=== PATIENT | female | born 1955 | race Caucasian/White ===

== ENCOUNTER 2024-02-28 12:25 | Emergency (ER) | payer MEDICARE, OTHER, SELFPAY ==
[2024-02-28 12:28] VITALS: BP 139/67; PULSE 50; RESP 16; TEMP 36.4; O2SAT 99; BMI 29.2
--- NOTE | 2024-02-28 12:42 | ED_ITS ---
HPI - Headache <Abdoulaye Donahue PA-C - Last Filed: 02/28/24 13:58> General Chief Complaint: Headache Stated Complaint: Fall 1 month ago, vision issues and body pain Time Seen by Provider: 02/28/24 12:42 Mode of arrival: Ambulatory History of Present Illness HPI Narrative: This is a 68-year-old female presents to the emergency department due to a mechanical ground level fall 3 weeks ago where she hit her head. She had not lose conscious. She states that 2 months ago she began noticing vision changes described as ?vertical fuzzy lines? that would last 1-2 minutes. Since the accident happened 3 weeks ago she was had a few episodes of these vision changes that lasted for about 30 minutes which caused her to become concerned. She denies any significant head pain, nausea, vomiting, slurred speech, dizziness, or any other concerning signs or symptoms. History of migraines since she was 2 years old but has not had these vision changes related to these migraines. Related Data Home Medications Medication Instructions Recorded Confirmed atorvastatin 20 mg tablet (Lipitor) ##0 02/05/18 dihydroergotamine 1 mg/mL ##0 02/05/18 injection solution (D.H.E.45) levothyroxine 75 mcg tablet ##0 02/05/18 (Synthroid) propranolol 80 mg capsule,24 80 mg PO QDAY ##0 02/05/18 hr,extended release venlafaxine 150 mg 150 mg PO QDAY ##0 02/05/18 capsule,extended release 24 hr (Effexor XR) clobetasol 0.05 % topical cream 1 applictn topical Q OTHER DAY 10/21/19 10/21/19 liothyronine 5 mcg tablet 5 mcg PO DAILY 10/21/19 10/21/19 Previous Rx's Medication Instructions Recorded sumatriptan succinate 6 mg/0.5 mL 6 mg (0.5 mL) SUBCUT .COMPLEX #6 05/09/18 subcutaneous cartridge (refill) units zonisamide 100 mg capsule 400 mg (4 x 100 mg) PO DAILY #120 05/09/18 caps erenumab-aooe 70 mg/mL 140 mg (2 mL) SUBCUT QMONTH #2 mL 09/16/18 subcutaneous auto-injector (Aimovig Autoinjector 140 mg/2 Pack () erenumab-aooe 140 mg/mL 140 mg SUBCUT QMONTH #1 mL 05/01/19 subcutaneous auto-injector (Aimovig Autoinjector) erenumab-aooe 140 mg/mL 140 mg SUBCUT QMONTH #1 mL 10/21/19 subcutaneous auto-injector (Aimovig Autoinjector) zonisamide 50 mg capsule 50 mg PO DAILY #90 caps 10/21/19 Allergies Allergy/AdvReac Type Severity Reaction Status Date / Time codeine [CODEINE] Allergy Unknown Verified 02/28/24 13:17 Review of Systems <Abdoulaye Donahue PA-C - Last Filed: 02/28/24 13:58> Review of Systems Narrative: GENERAL: Denies chills, fatigue, malaise, fever, sweats. HEENT: Reports vision changes Denies sinus pain, ear pain, sore throat, difficulty swallowing, dizziness. RESPIRATORY: Denies dyspnea, cough, wheezing, hemoptysis, sputum. CARDIOVASCULAR: Denies chest pain, palpitations, orthopnea, edema, GASTROINTESTINAL: Denies nausea, vomiting, abdominal pain, diarrhea, constipation, melena. : Denies dysuria, frequency, incontinence, hematuria, urinary retention. MUSCULOSKELETAL: denies weakness, joint pain, or bony pain SKIN: Denies rash, skin lesions, or other NEUROLOGIC: Denies weakness, headache, numbness, change in speech, confusion, seizures, incoordination. PSYCHIATRIC: No concerning psychosocial issues. 12 point review of systems is negative except for those stated above Patient History <Abdoulaye Donahue PA-C - Last Filed: 02/28/24 13:58> Social History Smoking Status: Never smoker Smoking Status: Never smoker Substance Use Type: does not use Exam <Abdoulaye Donahue PA-C - Last Filed: 02/28/24 13:58> Narrative Exam Narrative: GENERAL: Well-developed patient, in mild distress. HEAD: Atraumatic. Normocephalic. EYES: Pupils equal round and reactive. Extraocular motions intact. No scleral icterus. No injection or drainage. ENT: Nose without bleeding, purulent drainage. Throat without erythema, tonsillar hypertrophy or exudate. Airway patent. NECK: Trachea midline. Non tender EXTREMITIES: No edema or joint tenderness. NEURO: AOx3. Cranial nerves 2-12 intact SKIN: No rash or erythema of visible areas Initial Vital Signs Initial Vital Signs: Vital Signs Temperature 97.6 F 02/28/24 12:28 Pulse Rate 50 L 02/28/24 12:28 Respiratory Rate 16 02/28/24 12:28 Blood Pressure 139/67 02/28/24 12:28 Pulse Oximetry 99 02/28/24 12:28 Oxygen Delivery Method Room Air 02/28/24 12:28 <Stefan Zuñiga DO - Last Filed: 02/28/24 14:04> Initial Vital Signs Initial Vital Signs: Vital Signs Temperature 97.6 F 02/28/24 12:28 Pulse Rate 50 L 02/28/24 12:28 Respiratory Rate 16 02/28/24 12:28 Blood Pressure 139/67 02/28/24 12:28 Pulse Oximetry 99 02/28/24 12:28 Oxygen Delivery Method Room Air 02/28/24 12:28 Course <Abdoulaye Donahue PA-C - Last Filed: 02/28/24 13:58> Orders Ordered: ED Orders 02/28/24 12:49 CT head/brain wo con Stat Vital Signs Vital signs: Vital Signs - 8 hr 02/28/24 12:28 Temperature 97.6 F Pulse Rate 50 L Respiratory Rate 16 Blood Pressure 139/67 Pulse Oximetry 99 Oxygen Delivery Method Room Air <DO Noel Miller Last Filed: 02/28/24 14:04> Orders Ordered: ED Orders 02/28/24 12:49 CT head/brain wo con Stat Vital Signs Vital signs: Vital Signs - 8 hr 02/28/24 12:28 Temperature 97.6 F Pulse Rate 50 L Respiratory Rate 16 Blood Pressure 139/67 Pulse Oximetry 99 Oxygen Delivery Method Room Air MDM - Headache <Abdoulaye Donahue PA-C - Last Filed: 02/28/24 13:58> Imaging Data CT scan - head: Radiologist's Impression: [address] [address] [address] Scan Report Signed Patient: Josie Pena MR#: [id number] : 1955 Acct:[id number] Age/Sex: 68 / F Date of Service: 02/28/24 Loc: ED Accession Number: [id number] Procedure: CT head/brain wo con Ordering Provider: Abdoulaye Donahue P.A-C PROCEDURE: CT HEAD/BRAIN WO CON INDICATIONS: Head injury 3 weeks ago, new vision changes TECHNIQUE: Noncontrast 4.5 mm thick angled axial sections acquired from the foramen magnum to the vertex, with coronal and sagittal reformats. For radiation dose reduction, the following was used: automated exposure control, adjustment of mA and/or kV according to patient size. COMPARISON: None. FINDINGS: Image quality: Diagnostic. CSF spaces: Basal cisterns are patent. No extra-axial fluid collections. Ventricles are normal in size and shape. Brain: No midline shift. No intracranial masses or hemorrhage. German-white matter interface is normal. Skull and face: Calvarium and visualized facial bones are intact, without suspicious lesions. Sinuses: Visualized sinuses and mastoids are clear. IMPRESSION: No acute intracranial pathology. Dictated by: Ezequiel Maguire M.D. on 02/28/2024 at 13:34 Approved by: Ezequiel Maguire M.D. on 02/28/2024 at 13:34 [facility] Narrative Medical decision making narrative: ED course: This is a 68-year-old female presents to the emergency department due to worsening vision changes after falling and hitting her head about a month ago. No other concerning neuro symptoms and physical exam very reassuring. CT head without contrast was unremarkable. May have mild concussion symptoms and recommended patient follow up with the Ophthalmology as well to further investigate the vision changes. CC: Vision changes Complicating co-morbidities: History of migraines Data collected from: Previous notes Medical records reviewed: Patient was not been seen in the end this emergency department in the past. Based on her pain management note from 5 years ago she had a history of chronic migraines. Differential considered, but not limited to: Concussion, migraine, ischemic stroke, subarachnoid hemorrhage, TBI Exam documented above, pertinent findings include: Cranial nerves 2-12 intact, reassuring neuro exam Lab Test results independently reviewed as above. Pertinent findings: None obtained Imaging studies independently reviewed: CT head unremarkable Scores Used: None MIPS Elements: None Consultations: None Treatments: None Re-evaluations: None Discussion: Discussed plan with the patient was comfortable with the plan Diagnosis: Concussion Disposition: see below, along with detailed discharge instructions that have been reviewed with patient as well as indications for ED re-evaluation and additional outpatient follow up Discharge Plan Departure Patient Disposition: Home Clinical Impression: Changes in vision Activity Restrictions/Additional Instructions: Thank you for coming to the [facility] Emergency Department today. As we discussed the CT head showed no evidence of any kind of intracranial bleed or other brain abnormality. You may have a mild concussion which maybe causing he was vision changes to worsen. I recommend he follow up with your eye doctor as well as your primary care provider for further workup and investigation. Please return to the emergency department if you develop any source speech, facial drooping, unilateral weakness, or any other concerning signs or symptoms. I hope you feel better soon. Please follow up with your primary care provider within a week if your symptoms continue. If you do not have a primary care provider please contact the [facility] Resource line at [phone]. They will ask some questions about your medical history and help you get set up with a provider in the community. Prescriptions: No Action atorvastatin [Lipitor] 20 MG tablet Qty: 0 levothyroxine [Synthroid] 75 MCG tablet Qty: 0 venlafaxine [Effexor XR] 150 MG capsule,extended release 24hr 150 mg PO QDAY Qty: 0 propranolol 80 MG capsule,extended release 24 hr 80 mg PO QDAY Qty: 0 dihydroergotamine [D.H.E.45] 1 MG/1 ML solution Qty: 0 Aimovig Autoinjector 140 mg/mL auto-injector 140 mg SUBCUT QMONTH Qty: 1 11RF sumatriptan succinate 6 mg/0.5 mL cartridge 6 mg SUBCUT .COMPLEX Qty: 6 11RF Rx Instructions: 1 at onset, may repeat after 2 hours times once. zonisamide 100 mg capsule 400 mg PO DAILY Qty: 120 11RF erenumab-aooe [Aimovig Autoinjector (2 Pack)] 70 mg/mL auto-injector 140 mg SUBCUT QMONTH Qty: 2 11RF Rx Instructions: administer as two 70 mg injections at separate sites clobetasol 0.05 % cream 1 applictn TOP Q OTHER DAY liothyronine 5 mcg tablet 5 mcg PO DAILY zonisamide 50 mg capsule 50 mg PO DAILY Qty: 90 2RF Aimovig Autoinjector 140 mg/mL auto-injector 140 mg SUBCUT QMONTH Qty: 1 12RF Referrals: Brittni Matthews ARNP [Primary Care Provider] - Stand Alone Forms: Patient Portal/API ED Sign-out <Stefan Zuñiga, DO - Last Filed: 02/28/24 14:04> Cosign ED Attending Cosignature Attestation: Dr Zuñiga Co-Sign Statement: I was available for consultation during this patient's emergency department visit. This chart is signed by myself for administrative purposes only. I did not have direct contact with this patient during this visit. They were seen independently by the APC.
--- NOTE | 2024-02-28 12:49 | DI.CT.S_ITS ---
PROCEDURE: CT HEAD/BRAIN WO CON INDICATIONS: Head injury 3 weeks ago, new vision changes TECHNIQUE: Noncontrast 4.5 mm thick angled axial sections acquired from the foramen magnum to the vertex, with coronal and sagittal reformats. For radiation dose reduction, the following was used: automated exposure control, adjustment of mA and/or kV according to patient size. COMPARISON: None. FINDINGS: Image quality: Diagnostic. CSF spaces: Basal cisterns are patent. No extra-axial fluid collections. Ventricles are normal in size and shape. Brain: No midline shift. No intracranial masses or hemorrhage. German-white matter interface is normal. Skull and face: Calvarium and visualized facial bones are intact, without suspicious lesions. Sinuses: Visualized sinuses and mastoids are clear. IMPRESSION: No acute intracranial pathology. Dictated by: Ezequiel Maugire M.D. on 02/28/2024 at 13:34 Approved by: Ezequiel Maguire M.D. on 02/28/2024 at 13:34
[2024-02-28 14:19] VITALS: BP 139/66; PULSE 59; RESP 18; O2SAT 100
== END 2024-02-28 14:20 | disposition home or self-care (01) ==
PROVIDERS: Emergency Provider Physician Assistant Medical; PCP Registered Nurse
DX: H53.8 Other visual disturbances (principal)
CPT/HCPCS: 70450; 99283